=== PATIENT | female | born 1995 | race Caucasian/White ===

== ENCOUNTER 2017-05-09 13:55 | Inpatient (IN) | payer OTHER ==
[~2017-05-09] VITALS: Ht 152.4 cm; Wt 51.3 kg
[2017-05-10] MEDS ORDERED: PRENATAL 19 TA1 EACH PO (09:37)
[2017-05-10] MEDS ORDERED: FOLIC ACID1 MG PO (09:38)
== END 2017-05-12 14:39 | DRG 775 ==
LOC: OB/GYN 13:55 → LDR 05-10 06:55 → OB/GYN 05-10 06:55
PROC: 10E0XZZ Delivery of Products of Conception, External Approach (ICD-10-PCS; principal; 2017-05-10)
PROC: 0W8NXZZ Division of Female Perineum, External Approach (ICD-10-PCS; 2017-05-10)
PROC: 3E0P7VZ Introduction of Hormone into Female Reproductive, Via Natural or Artificial Opening (ICD-10-PCS; 2017-05-10)
PROC: 10907ZC Drainage of Amniotic Fluid, Therapeutic from Products of Conception, Via Natural or Artificial Opening (ICD-10-PCS; 2017-05-10)
PROC: 4A033R1 Measurement of Arterial Saturation, Peripheral, Percutaneous Approach (ICD-10-PCS; 2017-05-10)
DX: O48.0 Post-term pregnancy (principal); Z37.0 Single live birth; Z3A.40 40 weeks gestation of pregnancy